=== PATIENT | female | born 1960 | race Caucasian/White ===

== ENCOUNTER → 2021-04-03 | Day surgery (SDC) | payer SELFPAY ==
--- NOTE | 2021-04-03 13:25 | RAD REPORT ---
EXAM DESCRIPTION: US - Guided FNA Non Breast - 04/03/2021 11:45 am CLINICAL HISTORY: Thyroid nodule ICD E07.9 COMPARISON: Not available TECHNIQUE: Risks, benefits and alternatives of procedure explained to the patient and informed conse nt obtained. Skin and subcutaneous tissues anesthetized with lidocaine. Under sonographic guidance, five 25 gauge needle passes were obtained into the 17 millimeter dominant nodule within the lower pole posteriorly left lobe of the thyroid gland. Under sonographic guidance, five 25 gauge needle passes were obtained into the 20 mm dominant nodule within the right lobe of the thyroid gland. Specimens given to pathology. Patient experienced no immediate complication IMPRESSION: Fine-needle aspiration of a dominant nodule within each lobe of the thyroid gland
--- NOTE | 2021-04-03 14:21 | RAD REPORT ---
EXAM DESCRIPTION: US - Guided FNA Non Breast - 04/03/2021 11:43 am CLINICAL HISTORY: Thyroid nodule ICD E07.9 COMPARISON: Not available TECHNIQUE: Risks, benefits and alternatives of procedure explained to the patient and informed conse nt obtained. Skin and subcutaneous tissues anesthetized with lidocaine. Under sonographic guidance, five 25 gauge needle passes were obtained into the 17 millimeter dominant nodule within the lower pole posteriorly left lobe of the thyroid gland. Under sonographic guidance, five 25 gauge needle passes were obtained into the 20 mm dominant nodule within the right lobe of the thyroid gland. Specimens given to pathology. Patient experienced no immediate complication IMPRESSION: Fine-needle aspiration of a dominant nodule within each lobe of the thyroid gland
== END ==
LOC: FNA 10:19
PROVIDERS: ATTEND Nurse Practitioner Family
PROC: 0GJK3ZZ Inspection of Thyroid Gland, Percutaneous Approach (ICD-10-PCS; principal; 2021-04-03)
PROC: BG44ZZZ Ultrasonography of Thyroid Gland (ICD-10-PCS; 2021-04-03)
DX: E04.2 Nontoxic multinodular goiter (principal); E07.9 Disorder of thyroid, unspecified
CPT/HCPCS: 88162

== ENCOUNTER → 2021-04-24 | Day surgery (SDC) | payer SELFPAY ==
--- NOTE | 2021-04-24 12:48 | RAD REPORT ---
EXAM DESCRIPTION: US - Guided FNA Non Breast - 04/24/2021 10:54 am CLINICAL HISTORY: E04.1 COMPARISON: Guided FNA Non Breast dated 04/03/2021 FINDINGS: Preoperative diagnosis: 2 cm right thyroid nodule. Post operative diagnosis: Same. Conscious Sedation: None Fluoroscopy time: None Contrast used: None Estimated blood loss: Minimal Specimens:5 x 25 gauge FNA specimens The right neck was prepped and draped in the usual sterile fashion. 1% lidocaine was infiltrated into the subcutaneous tissues for local anesthesia. Real time ultrasound scanning of the right thigh demo nstrated 2 cm nodule. Under ultrasound guidance, using 25 gauge FNA needles, 5 specimens were obtaine d of this lesion and sent to pathology for evaluation. There were no complications. IMPRESSION: Successful ultrasound-guided right thyroid nodule FNA procedure.
== END ==
LOC: FNA 09:56
PROVIDERS: ATTEND Nurse Practitioner Family
PROC: 0GJK3ZZ Inspection of Thyroid Gland, Percutaneous Approach (ICD-10-PCS; principal; 2021-04-24)
DX: E04.1 Nontoxic single thyroid nodule (principal)
CPT/HCPCS: 88162

== ENCOUNTER 2023-11-06 14:29 | Emergency (ER) | payer OTHER, BC ==
--- OUTSIDE RECORDS SUMMARY | 2023-11-06 14:37 | XMS REPORT | Clinical Summary ---
Author Name Unknown Organization [facility] Address [address] [place] [address] Care Team Providers Care Ux Architect Name Role Phone Unavailable Primary Care Provider Unavailabl e Allergies Active Allergy Reactions Criticality Noted Date Comments Codeine GI Intolerance 04/19/2021 Social History Tobacco Use Types Packs/Day Years Used Date Smoking Tobacco: Never Assessed Sex and Gender Information Value Date Recorded Sex Assigned at Not on file Gender Identity Not on file Sexual Orientation Not on file Job Start Date Occupation Industry Not on file Not on file Not on file Plan of Treatment Not on file
--- NOTE | 2023-11-06 16:05 | RAD REPORT ---
EXAM DESCRIPTION: RAD - Femur Right - 11/06/2023 3:49 pm CLINICAL HISTORY: PAIN COMPARISON: No comparisons FINDINGS: Mild osteopenia is noted. No fracture, dislocation or AVN.
--- NOTE | 2023-11-06 16:17 | RAD REPORT ---
EXAM DESCRIPTION: US - Extremity Venous Uni Ltd - 11/06/2023 4:12 pm CLINICAL HISTORY: PAIN Leg swelling and edema. COMPARISON: No comparisons FINDINGS: Right lower extremity venous system was interrogated with Doppler technique. Normal flow, compressibility and augmentation was noted. There is no DVT present. IMPRESSION: No evidence of right lower extremity deep venous thrombosis.
--- NOTE | 2023-11-06 16:26 | RAD REPORT ---
EXAM DESCRIPTION: US - Extremity Nonvascular Limited - 11/06/2023 4:12 pm CLINICAL HISTORY: Pain;Swelling COMPARISON: Guided FNA Non Breast dated 04/24/2021 TECHNIQUE: Real-time sonographic evaluation of the area of interest was performed. FINDINGS: No evidence of mass or cyst seen sonographically in the area of interest.
--- NOTE | 2023-11-06 19:00 | EDPHYS ---
Physician Documentation [facility] Name: Amanda Vega Age: 63 yrs Sex: Female : 1960 Arrival Date: 11/06/2023 Time: 14:29 Bed 19 Private MD: ED Physician Carlos Rodriges HPI: 11/06 15:30 This 63 yrs old Female presents to ER via Ambulatory with complaints of Leg Pain, Leg cp Swelling, Leg Popping. 15:30 The patient presents with pain, that is acute. The complaints affect the anterior cp aspect right upper thigh. Context: resulted from an unknown cause, the patient can fully bear weight, the patient is able to ambulate, with moderate difficulty, Problem is a result from a previous injury: No. Historical: - Allergies: 15:12 Codeine; cm10 - PMHx: 15:12 Hypertensive disorder; cm10 - PSHx: 15:12 Thyroidectomy; right foot; left wrist; left shoulder; Total abdominal hysterectomy; cm10 Cholecystectomy; Gastirc Sleeve; - Immunization history:: Adult Immunizations up to date. - Social history:: Smoking status: Patient denies any tobacco usage or history of. ROS: 16:55 Constitutional: Negative for body aches, chills, fever, poor PO intake, cp 16:55 Eyes: Negative for injury, pain, redness, and discharge, cp 16:55 Cardiovascular: Negative for chest pain, edema, palpitations, 16:55 Respiratory: Negative for cough, shortness of breath, wheezing, 16:55 Abdomen/GI: Negative for abdominal pain, nausea, vomiting, and diarrhea, 16:55 MS/extremity: Positive for pain, swelling, of the anterior upper aspect right upper leg, 16:55 Skin: Negative for rash, 16:55 All other systems are negative, Exam: 17:00 Constitutional: The patient appears in no acute distress, alert, awake, non-toxic, well cp developed, well nourished, uncomfortable, 17:00 Head/Face: Normocephalic, atraumatic. cp 17:00 Chest/axilla: Inspection: normal, 17:00 Cardiovascular: Rate: normal, 17:00 Respiratory: the patient does not display signs of respiratory distress, Respirations: normal, no use of accessory muscles, no retractions, labored breathing, is not present, Breath sounds: are clear throughout, no decreased breath sounds, no stridor, no wheezing, 17:00 Abdomen/GI: Inspection: abdomen appears normal, Palpation: abdomen is soft and non-tender, in all quadrants, 17:00 Back: pain, is absent, ROM is normal, 17:00 Musculoskeletal/extremity: Extremities: grossly normal except: noted in the anterior upper aspect right upper leg: pain, tenderness to mass like area not well defined, overlying skin with no erythema and/or ecchymosis, Vital Signs: 15:09 BP 105 / 41; Pulse 70; Resp 16; Temp 97.3(IR); Pulse Ox 100% ; Weight 99.79 kg; Height cm10 5 ft. 2 in. ; Pain 5/10; 18:34 BP 114 / 62; Pulse 67; Resp 16; Pulse Ox 99% on R/A; hb 19:37 BP 121 / 91; Pulse 73; Resp 15 S; Pulse Ox 98% on R/A; ha1 15:09 Body Mass Index 40.24 (99.79 kg, 157.48 cm) cm10 15:09 Pain Scale: Adult cm10 MDM: 15:15 Patient medically screened. cp 19:00 Data reviewed: vital signs, nurses notes, radiologic studies, plain films, ultrasound, cp and as a result, I will discharge patient. 19:00 Differential diagnosis: cellulitis, abscess, cancer, lipoma, DVT. I considered the cp following discharge prescriptions or medication management in the emergency department Medications were administered in the Emergency Department. See MAR. Counseling: I had a detailed discussion with the patient and/or guardian regarding the historical points, exam findings, and any diagnostic results supporting the discharge/admit diagnosis, radiology results, the need for outpatient follow up, a general surgeon, to return to the emergency department if symptoms worsen or persist or if there are any questions or concerns that arise at home. Response to treatment: the patient's symptoms have mildly improved after treatment, and as a result, I will discharge patient. 11/06 15:19 Order name: XRAY Femur RIGHT; Complete Time: 18:30 cp 11/06 15:19 Order name: US Extremity Venous Unilateral Ltd; Complete Time: 18:30 cp 11/06 15:19 Order name: Extrmty Nonvasular Limited: right upper anterior leg; Complete Time: cp 18:30 Administered Medications: 19:10 Drug: Ketorolac IM 30 mg IM once Route: IM; Site: right deltoid; ha1 19:33 Follow up: Response: No adverse reaction ha1 Disposition: 11/07 19:33 Co-signature as Attending Physician, Carlos Rodriges MD I reviewed the patient's care rt provided by the Advanced Practice Provider and agree with the diagnosis and treatment plan. Disposition Summary: 11/06/23 19:00 Discharge Ordered Notes: Location: Home cp Problem: new cp Symptoms: have improved cp Condition: Stable cp Diagnosis - Pain in right leg cp Followup: cp - With: Private Physician - When: 2 - 3 days - Reason: Recheck today's complaints Discharge Instructions: - Discharge Summary Sheet cp - Musculoskeletal Pain cp - How to Use Cold Therapy cp - Heat Therapy cp Forms: - Medication Reconciliation Form cp - Thank You Letter cp - Antibiotic Education cp - Prescription Opioid Use cp - Patient Portal Instructions cp - Leadership Thank You Letter cp Prescriptions: - Cyclobenzaprine 10 mg Oral Tablet - take 1 tablet ORAL route every 8 hours As needed; 30 tablet; Refills: 0, cp Product Selection Permitted - Diclofenac Sodium 75 mg Oral Tablet Sustained Release - take 1 tablet ORAL route 2 times per day; 30 tablet; Refills: 0, Product cp Selection Permitted Signatures: Dispatcher [employer] EDMax Salguero PA PA cp Izabela Molina RN RN ha1 Carlos Rodriges MD MD rt Cristiane Aiken RN RN cm10
--- NOTE | 2023-11-06 19:00 | ER ---
Nurse's Notes [facility] Name: Amanda Vega Age: 63 yrs Sex: Female : 1960 Arrival Date: 11/06/2023 Time: 14:29 Bed 19 Private MD: Diagnosis: Pain in right leg Presentation: 11/06 15:09 Chief complaint: Patient states: Knot on right upper thigh onset 2 months ago. pt was cm10 seen at an ER in [place] on 10/08 and was told that she needed an MRI. Pt states that she had an appointment with Dr. Mccann for follow-up but the appointment got moved. Pt states that the pain is getting worse. Coronavirus screen: Vaccine status: Patient reports being unvaccinated. Client denies travel out of the [place] in the last 14 days. Ebola Screen: Patient denies travel to an Ebola-affected area in the 21 days before illness onset. No symptoms or risks identified at this time. Initial Sepsis Screen: Does the patient meet any 2 criteria? No. Patient's initial sepsis screen is negative. Does the patient have a suspected source of infection? No. Patient's initial sepsis screen is negative. Risk Assessment: Do you want to hurt yourself or someone else? Patient reports no desire to harm self or others. Onset of symptoms was November 06, 2023. 15:09 Method Of Arrival: Ambulatory cm10 15:09 Acuity: JOSE ANGEL 4 cm10 Historical: - Allergies: 15:12 Codeine; cm10 - PMHx: 15:12 Hypertensive disorder; cm10 - PSHx: 15:12 Thyroidectomy; right foot; left wrist; left shoulder; Total abdominal hysterectomy; cm10 Cholecystectomy; Gastirc Sleeve; - Immunization history:: Adult Immunizations up to date. - Social history:: Smoking status: Patient denies any tobacco usage or history of. Screenin:12 [facility] ED Fall Risk Assessment (Adult) Score/Fall Risk Level 0 - 2 = Low Risk hb Oriented to surroundings, Maintained a safe environment, Educated pt \T\ family on fall prevention, incl call for assistance when getting out of bed. Abuse screen: Denies threats or abuse. Denies injuries from another. Nutritional screening: No deficits noted. Tuberculosis screening: No symptoms or risk factors identified. Assessment: 18:12 General: Appears in no apparent distress. uncomfortable, Behavior is calm, cooperative. hb Pain: Pain currently is 5 out of 10 on a pain scale. at worst was 10 out of 10 on a pain scale. Neuro: Level of Consciousness is awake, alert, obeys commands, Oriented to person, place, time, situation. Cardiovascular: Patient's skin is warm and dry. Respiratory: Respiratory effort is even, unlabored, Respiratory pattern is regular, symmetrical. GI: No signs and/or symptoms were reported involving the gastrointestinal system. : No signs and/or symptoms were reported regarding the genitourinary system. EENT: No signs and/or symptoms were reported regarding the EENT system. Derm: Skin is pink, warm \T\ dry. Musculoskeletal: Reports RIGHT THIGH AND HIP PAIN. 19:37 Reassessment: Patient and/or family updated on plan of care and expected duration. Pain ha1 level reassessed. Patient is alert, oriented x 3, equal unlabored respirations, skin warm/dry/pink. pain 4/10 Patient states feeling better. Patient states symptoms have improved. Vital Signs: 15:09 BP 105 / 41; Pulse 70; Resp 16; Temp 97.3(IR); Pulse Ox 100% ; Weight 99.79 kg; Height cm10 5 ft. 2 in. ; Pain 5/10; 18:34 BP 114 / 62; Pulse 67; Resp 16; Pulse Ox 99% on R/A; hb 19:37 BP 121 / 91; Pulse 73; Resp 15 S; Pulse Ox 98% on R/A; ha1 15:09 Body Mass Index 40.24 (99.79 kg, 157.48 cm) cm10 15:09 Pain Scale: Adult cm10 ED Course: 14:37 Patient arrived in ED. im 14:49 Max Fink PA is PHCP. cp 14:49 Carlos Rodriges MD is Attending Physician. cp 15:12 Triage completed. cm10 15:15 Arm band placed on Patient placed in waiting room. cm10 15:51 XRAY Femur RIGHT In Process Unspecified. EDMS 16:14 US Extremity Venous Unilateral Ltd In Process Unspecified. EDMS 16:14 US Extrmty Nonvasular Limited: right upper anterior leg In Process Unspecified. EDMS 18:12 Gabby Moraes, RN is Primary Nurse. hb 18:12 Patient has correct armband on for positive identification. Provided Education on: hb TESTS, RESULT TIMES. 19:37 No provider procedures requiring assistance completed. Patient did not have IV access ha1 during this emergency room visit. Administered Medications: 19:10 Drug: Ketorolac IM 30 mg IM once Route: IM; Site: right deltoid; ha1 19:33 Follow up: Response: No adverse reaction ha1 Medication: 18:12 VIS not applicable for this client. hb Outcome: 19:00 Discharge ordered by . lio 19:37 Discharged to home ambulatory, ha1 19:37 Condition: stable 19:37 Discharge instructions given to patient, Instructed on discharge instructions, follow up and referral plans. medication usage, Demonstrated understanding of instructions, follow-up care, medications, Prescriptions given X 2, 19:38 Patient left the ED. ha1 Signatures: Dispatcher [employer] EDMS Max Fink PA PA cp Baxter, Heather, CARLOS RN Izabela Schmidt RN RN ha1 Agatha Lopez Clarissa, RN RN cm10
[2023-11-06] MEDS ORDERED: KETOROLAC 30 MG/ML INJ ONE (19:21)
[2023-11-06 19:46] VITALS: TEMP 97.3
[2023-11-06 19:47] VITALS: BP 121/91; O2SAT 98
== END 2023-11-06 19:38 | disposition home or self-care (01) ==
LOC: ER 14:29
DX: M79.651 Pain in right thigh (principal); Z88.5 Allergy status to narcotic agent
CPT/HCPCS: 76882; 93971; 96372; 99284